=== PATIENT | female | born 1985 | race Hispanic/Latino ===

== ENCOUNTER 2018-12-13 08:17 | Inpatient (IN) | payer BC | END 2018-12-15 12:50 | disposition home or self-care (01) | LOC: LDH 08:17 → WSH 12-14 09:29 → LDH 09:15 | PROC: 10D00Z1 Extraction of Products of Conception, Low, Open Approach (ICD-10-PCS; principal; 2018-12-13 19:55) | PROC: 0UB70ZZ Excision of Bilateral Fallopian Tubes, Open Approach (ICD-10-PCS; 2018-12-13 19:55) | DX: O62.0 Primary inadequate contractions (principal); Z37.0 Single live birth; Z3A.36 36 weeks gestation of pregnancy; Z30.2 Encounter for sterilization ==